=== PATIENT | female | born 1980 | race Caucasian/White ===

== ENCOUNTER 2018-10-12 09:49 | Emergency (ER) | payer OTHER ==
[~2018-10-12] VITALS: Ht 165.1 cm; Wt 71.4 kg
[2018-10-12 10:39] LABS: URINE BILIRUBIN - DIPSTICK NEGATIVE (NEGATIVE); URINE BLOOD DIPSTICK LARGE (NEGATIVE); URINE COLOR YELLOW; URINE GLUCOSE - DIPSTICK NEGATIVE (NEGATIVE); URINE KETONE NEGATIVE (NEGATIVE); URINE NITRITE - DIPSTICK NEGATIVE (Negative); URINE PROTEIN - DIPSTICK NEGATIVE (NEG-TRACE); URINE SPECIFIC GRAVITY 1.015; URINE UROBILINOGEN - DIPSTICK 0.2 E.U./dL (0.2)
[2018-10-12 10:42] LABS: URINE LEUK ESTERASE MODERATE (NEGATIVE)
[2018-10-12 10:44] LABS: HEMATOCRIT 40.8 % (37.0-47.0); HEMOGLOBIN 13.7 g/dl (12.0-16.0); IMMATURE GRANULOCYTES 0.4 % (0.0-5.0); MEAN CORPUSCULAR HGB 31.6 pG CALC (26.0-32.0); MEAN CORPUSCULAR HGB CONC 33.6 g/L CALC (32.0-36.0); NEUT# 12.52 thou/uL (2.00-7.15); RED BLOOD COUNT 4.34 mill/uL (4.20-5.60); RED CELL DISTRI WIDTH 13.5 % (11.5-15.5)
[2018-10-12 10:51] LABS: URINE RBC TNTC RBC/hpf (0-5); URINE SQUAMOUS EPITHELIAL CELL FEW EPI/hpf (0-FEW); URINE WBC 20-50 WBC/hpf (0-5)
[2018-10-12 10:52] LABS: URINE BACTERIA FEW hpf
[2018-10-12 11:33] LABS: ALBUMIN 3.9 g/dL (3.2-5.0); ALKALINE PHOSPHATASE < 20 u/l (38-126); ANION GAP 15 (6-22 (CALC)); BILIRUBIN, TOTAL 0.4 mg/dL (0.0-1.4); BUN 9 mg/dL (7-17); BUN/CREATININE RATIO 13 (12-20 (CALC)); CARBON DIOXIDE 26 mmol/l (22-30); CHLORIDE 105 mmol/l (95-108); CREATININE 0.7 mg/dL (0.5-1.0); GFR > 60 ML/MIN (>=60 (CALC)); GFR FOR AFR.AMER. > 60 ML/MIN (>=60 (CALC)); LIPASE 171 u/l (23-300); POTASSIUM 4.3 mmol/l (3.5-5.1); SGOT/AST 32 u/l (14-36); SODIUM 141 mmol/l (137-146); TOTAL PROTEIN 7.4 g/dL (6.3-8.2)
[2018-10-12] MEDS ORDERED: OMNICEF300 M1 PO (13:42)
[2018-10-12 15:36] VITALS: BP 144/94
== END 2018-10-12 15:48 | disposition home or self-care (01) ==
LOC: ED 09:49
PROVIDERS: Family Medicine
DX: N39.0 Urinary tract infection, site not specified (principal); N70.11 Chronic salpingitis; F17.210 Nicotine dependence, cigarettes, uncomplicated; R10.31 Right lower quadrant pain; R10.32 Left lower quadrant pain
CPT/HCPCS: Q9967

== ENCOUNTER 2019-02-20 12:30 | Emergency (ER) | payer OTHER, MEDICAID ==
[~2019-02-20] VITALS: Ht 165.1 cm; Wt 72.0 kg
[~2019-02-20 12:30] MED LIST: OMNICEF300 M1 PO
[2019-02-20] MEDS ORDERED: LEXAPRO10 MG PO (12:47)
[2019-02-20] MEDS ORDERED: FLEXERIL PO (14:00)
[2019-02-20] MEDS ORDERED: TORADOL PO (14:00)
[2019-02-20 14:30] VITALS: BP 137/83
== END 2019-02-20 14:30 | disposition home or self-care (01) | DRG 552 ==
LOC: ED 12:30
DX: S16.1XXA Strain of muscle, fascia and tendon at neck level, initial encounter (principal); S29.012A Strain of muscle and tendon of back wall of thorax, initial encounter; S40.012A Contusion of left shoulder, initial encounter; S20.219A Contusion of unspecified front wall of thorax, initial encounter; V49.49XA Driver injured in collision with other motor vehicles in traffic accident, initial encounter; Y92.414 Local residential or business street as the place of occurrence of the external cause

== ENCOUNTER 2019-09-03 03:32 | Inpatient (IN) | payer OTHER ==
[~2019-09-03] VITALS: Ht 165.1 cm; Wt 73.0 kg
[~2019-09-03 03:32] MED LIST changes: +FLEXERIL PO; +LEXAPRO10 MG PO; +TORADOL PO
--- NOTE | 2019-09-03 03:32 | NUR ---
BY EMS TO ROOM
[2019-09-03 04:11] LABS: HEMATOCRIT 39.6 % (37.0-47.0); IMMATURE GRANULOCYTES 0.5 % (0.0-5.0); MEAN CELL VOLUME 88.4 fL CALC (80.0-100.0); MEAN CORPUSCULAR HGB 31.3 pG CALC (26.0-32.0); MEAN CORPUSCULAR HGB CONC 35.4 g/L CALC (32.0-36.0); NEUT# 22.11 thou/uL (2.00-7.15); RED BLOOD COUNT 4.48 mill/uL (4.20-5.60); RED CELL DISTRI WIDTH 13.7 % (11.5-15.5)
--- NOTE | 2019-09-03 04:30 | NUR ---
RESTING QUIETLY AWAITING TEST RESULTS.
[2019-09-03 04:32] LABS: ALBUMIN 4.4 g/dL (3.2-5.0); ALKALINE PHOSPHATASE < 20 u/l (38-126); AMYLASE 134 u/l (30-110); BUN 13 mg/dL (7-17); BUN/CREATININE RATIO 14 (12-20 (CALC)); CHLORIDE 104 mmol/l (95-108); CREATININE 0.9 mg/dL (0.5-1.0); GFR > 60 ML/MIN (>=60 (CALC)); GFR FOR AFR.AMER. > 60 ML/MIN (>=60 (CALC)); LIPASE 287 u/l (23-300); POTASSIUM 3.8 mmol/l (3.5-5.1); SGOT/AST 44 u/l (14-36); SODIUM 137 mmol/l (137-146); TOTAL PROTEIN 8.3 g/dL (6.3-8.2)
[2019-09-03 04:33] LABS: ANION GAP 19 (6-22 (CALC)); BILIRUBIN, TOTAL 0.8 mg/dL (0.0-1.4); CARBON DIOXIDE 18 mmol/l (22-30)
--- NOTE | 2019-09-03 05:30 | NUR ---
FEELING BETTER. IV INFUSING WELL.
[2019-09-03 05:50] LABS: URINE BILIRUBIN - DIPSTICK NEGATIVE (NEGATIVE); URINE BLOOD DIPSTICK TRACE-INTACT (NEGATIVE); URINE COLOR YELLOW; URINE GLUCOSE - DIPSTICK 100 mg/dL (NEGATIVE); URINE KETONE 40 mg/dL (NEGATIVE); URINE LEUK ESTERASE NEGATIVE (NEGATIVE); URINE NITRITE - DIPSTICK NEGATIVE (Negative); URINE PROTEIN - DIPSTICK NEGATIVE (NEG-TRACE); URINE SPECIFIC GRAVITY 1.015; URINE UROBILINOGEN - DIPSTICK 0.2 E.U./dL (0.2)
[2019-09-03 06:03] LABS: BARBITURATES NEGATIVE (NEGATIVE); COCAINE NEGATIVE (NEGATIVE); METHADONE NEGATIVE (NEGATIVE); OXCYCODONE NEGATIVE (NEGATIVE); TETRAHYDROCANNABIONOL POSITIVE (NEGATIVE); TRICYLIC ANTIDEPRESSANTS NEGATIVE (NEGATIVE)
[2019-09-03 06:42] LABS: MYOGLOBIN 31 ng/mL (0 - 62)
--- NOTE | 2019-09-03 06:54 | NUR ---
REPORT TO STUART ATKINSON
--- NOTE | 2019-09-03 06:56 | NUR ---
REPORT RECEIVED FROM WILL JEWELL RN.
--- NOTE | 2019-09-03 06:56 | NUR ---
PT RESTING QUIETLY ON STRETCHER, NO PAIN AT THIS TIME
--- NOTE | 2019-09-03 08:17 | NUR ---
NO VOMITING OR DIARRHEA SINCE ARRIVAL, PT HAS BEEN RESTING QUIETLY, VITAL SIGNS STABLE
--- NOTE | 2019-09-03 08:36 | NUR ---
REPORT GIVEN TO FELIPE, WILL TAKE PT TO FLOOR PER W/C WITH FLUIDS INFUSING .
[2019-09-03 08:45] VITALS: BP 120/79
--- NOTE | 2019-09-03 08:45 | NUR ---
PT ARRIVES TO MED/SURG FLOOR VIA WHEELCHAIR FROM ER ACCOMPANIED BY DEMETRIO, IS ALERT AND ORIENTED X 3. LUNGS CLEAR, RA. ABDOMEN SOFT, NO COMPLAINT OF NAUSEA OR VOMITING. IVF INFUSING PROPERLY INTO LAC IV SITE. PT ORIENTED TO ROOM, QUESTIONS ANSWERED. CALL MARQUIS WITHIN REACH.
[2019-09-03 16:00] VITALS: BP 142/82
--- NOTE | 2019-09-03 16:00 | NUR ---
PT MEDICATED FOR FEVER 102.1, TYLENOL. OTHERWISE, ABX INFUSING WELL, PT IN NO ACUTE DISTRESS, NO REPORT OF PAIN.
--- NOTE | 2019-09-03 18:34 | NUR ---
PT HAS HAD FEVER GO UP TO 102.8. SHE WAS MEDICATED WITH MOTRIN 600MG AT THAT TIME. MOST RECENT TEMP IS 102.0. PT STATES THAT SHE DOES FEEL SLIGHTLY BETTER.
[2019-09-03 19:00] VITALS: BP 143/67
--- NOTE | 2019-09-03 19:58 | NUR ---
PATIENT RESTING IN BED AT THIS TIME-AWAKE ALERT AND ORIENTEDX3. IVF NS PATENT AND INFUSING AT 100CC/HR. SITE APPEARS HEALTHY AT THIS TIME. PATIENT WITH C/O ABD PAIN AND NAUSEA. PATIENT MEDICATED WITH MORPHINE 2MG IVP FOR PAIN AND WITH ZOFRAN 4MG IVP FOR NAUSEA. CALL LIGHT IN REACH. WILL CONT TO MONITOR.
--- NOTE | 2019-09-03 23:46 | NUR ---
PATIENT RESTING IN BED-CONT TO C/O ABD PAIN-6/10 ON PAIN SCALE AND NAUSEA. MEDICATED WITH MORPHINE 2MG IVP FOR PAIN AND WITH ZOFRAN 4MG IVP FOR NAUSEA. ZOSYN HUNG ORDERED. IV SITE TO LEFT AC INTACT AND REMAINS HEALTHY. NO STOOLS SO FAR TONIGHT. PATIENT HAS BEEN INSTRUCTED ON [place] FOR STOOL SPEC WHEN ABLE TO PROVIDE. CALL LIGHT IN REACH. WILL CONT TO MONITOR.
--- NOTE | 2019-09-04 01:02 | NUR ---
RESTING IN BED-MOQN658.7. MEDICATED WITH TYLENOL 650MG PO FOR TEMP. BLANKETS REMOVED FROM BED. CALL LIGHT IN REACH, WILL CONT TO MONITOR.
[2019-09-04 03:50] VITALS: BP 142/77
--- NOTE | 2019-09-04 04:00 | NUR ---
PATIENT RESTING IN BED. TEMP 99.1 AT THIS TIME.APPEARS SLEEPING WITH EYES CLOSED. IVF PATENT AND INFUSING VIA LEFT AC AT 100CC/HR. CALL LIGHT IN REACH. WILL CONT TO MONITOR.
[2019-09-04 05:00] LABS: HEMATOCRIT 35.3 % (37.0-47.0); IMMATURE GRANULOCYTES 0.7 % (0.0-5.0); MEAN CELL VOLUME 92.7 fL CALC (80.0-100.0); MEAN CORPUSCULAR HGB 30.7 pG CALC (26.0-32.0); MEAN CORPUSCULAR HGB CONC 33.1 g/L CALC (32.0-36.0); NEUT# 9.03 thou/uL (2.00-7.15); RED BLOOD COUNT 3.81 mill/uL (4.20-5.60); RED CELL DISTRI WIDTH 14.1 % (11.5-15.5)
[2019-09-04 05:07] LABS: HEMOGLOBIN 11.7 g/dl (12.0-16.0)
[2019-09-04 05:31] LABS: ANION GAP 13 (6-22 (CALC)); BUN 6 mg/dL (7-17); BUN/CREATININE RATIO 8 (12-20 (CALC)); CARBON DIOXIDE 19 mmol/l (22-30); CHLORIDE 109 mmol/l (95-108); CREATININE 0.8 mg/dL (0.5-1.0); GFR > 60 ML/MIN (>=60 (CALC)); GFR FOR AFR.AMER. > 60 ML/MIN (>=60 (CALC)); MAGNESIUM 1.6 mg/dL (1.6-2.3); POTASSIUM 3.4 mmol/l (3.5-5.1); SODIUM 137 mmol/l (137-146)
[2019-09-04 07:25] VITALS: BP 147/89
--- NOTE | 2019-09-04 07:25 | NUR ---
AWAKE ON ROUNDS. VSS. RESP NON-LABORED. ABD SOFT WITH ACTIVE BOWEL SOUNDS. PATIENT HAD BM IN BR, STOOL SPEC OBTAINED AND SENT TO LAB. PATIENT C/O ABD PAIN AND A HEADACHE PLAN OF CARE AND MEDICATION SCHEDULE, PATIENT VERBALIZES UNDERSTANDING OF TEACHING. IV IN LAC, SITE BENIGN, NS INFUSING AT 100 ML/HR. CALL MARQUIS IN REACH.
--- NOTE | 2019-09-04 09:04 | NUR ---
PATIENT SXHEDULED FOR FLU AND PNEUMOVAX TODAY. PATIENT STATES SHE FEELS LIKE TEMP IS GOING UP, "CHILLS". FLUVAX AND PNEUMOVAX HELD AT THIS TIME.
--- NOTE | 2019-09-04 12:05 | NUR ---
TAKING CLEAR LIQUIDS FOR LUNCH. PATIENT HAS BEEN UP IN ROOM TO SHOWER, STANCE AND GAIT STABLE.
[2019-09-04 15:16] VITALS: BP 149/86
--- NOTE | 2019-09-04 15:30 | NUR ---
DISCUSSED CT OF ABD AND PELVIS AND TAKING PO IV CONTRAST. PATIENT VERBALIZES UNDERSTANDING OF TEACHING.
--- NOTE | 2019-09-04 17:00 | NUR ---
TO XRAY FOR CT SCAN OF ABD AND PELVIS.
--- NOTE | 2019-09-04 17:30 | NUR ---
RETURNED FROM CT SCAN VIA WC. FAMILY IN TOVISIT. NO COMPLAINTS VOICED BY PATIENT.
--- NOTE | 2019-09-04 20:02 | NUR ---
PT. SITTING UP IN BED WATCHING TV, NO RESP. DISTRESS NOTED. ASSESSMENT COMPLETED. PT. C/O ABDOMINAL PAIN 5/10 AND NAUSEA; TEMPERATURE ELEVATED AT 102.1 AND MEDICATED WITH ORDERED MORPHINE AND ZOFRAN ALONG WITH MOTRIN, WILL REASSESS. UPDATED ON POC. ENCOURAGED TO CALL FOR ANY NEEDS. FRESH WATER PROVIDED. CALL LIGHT IS IN REACH.
[2019-09-04 21:00] VITALS: BP 141/81
--- NOTE | 2019-09-04 22:07 | NUR ---
TEMPERATURE DOWN TO 101.5 POST MOTRIN AND MEDICATED WITH ORDERED PRN TYLENOL, WILL REASSESS. DENIES FURTHER NEEDS. CALL LIGHT IS IN REACH.
--- NOTE | 2019-09-05 00:39 | NUR ---
PT. RESTING IN BED WITH EYES CLOSED ON LEFT SIDE WITH NO DISTRESS NOTED. AWAKENED FOR SCHED ZOSYN AND HUNG AT THIS TIME. DENIES NEEDS AND VOICES NO CONCERNS. COMMODE EMPTIED OF 1000MLS OF YELLOW CLEAR URINE. CALL LIGHT IS IN REACH.
--- NOTE | 2019-09-05 02:04 | NUR ---
PT. C/O CASTANEDA NOT TIME FOR MOTRIN OR TYLENOL AT THIS TIME. PT. DECLINES WANTING MOPRHINE. PROVIDED WITH COFFEE WITHOUT CREAMER. PT. DENIES FURTHER NEEDS. ALSO DECLINES HOT/COLD PACK. ENCOURAGED TO CALL FOR ANY NEEDS.
[2019-09-05 03:25] VITALS: BP 143/82
--- NOTE | 2019-09-05 03:36 | NUR ---
PT. MEDICATED WITH ORDEREDPRN MOTRIN FOR CASTANEDA AND TEMP NOW 99, WILL REASSESS AND CONTINUE TO MONITOR. DENIES FURTHER NEEDS. CALL LIGHT IS IN REACH.
[2019-09-05 05:30] LABS: HEMATOCRIT 34.7 % (37.0-47.0); HEMOGLOBIN 11.8 g/dl (12.0-16.0); IMMATURE GRANULOCYTES 0.4 % (0.0-5.0); MEAN CELL VOLUME 91.6 fL CALC (80.0-100.0); MEAN CORPUSCULAR HGB 31.1 pG CALC (26.0-32.0); NEUT# 7.96 thou/uL (2.00-7.15); RED BLOOD COUNT 3.79 mill/uL (4.20-5.60); RED CELL DISTRI WIDTH 14.2 % (11.5-15.5)
--- NOTE | 2019-09-05 05:38 | NUR ---
PT. RESTING IN BED ON RIGHT SIDE WITH EYES CLOSED AND AWAKENED FOR SCHED ANTIBIOTIC. DENIES NEEDS FOR PAIN MEDS AT THIS TIME. TEMP 97.4. VOICES NO CONCERNS. CALL LIGHT IS IN REACH.
[2019-09-05 06:10] LABS: ANION GAP 12 (6-22 (CALC)); BUN 4 mg/dL (7-17); BUN/CREATININE RATIO 6 (12-20 (CALC)); CARBON DIOXIDE 22 mmol/l (22-30); CHLORIDE 107 mmol/l (95-108); CREATININE 0.7 mg/dL (0.5-1.0); GFR > 60 ML/MIN (>=60 (CALC)); GFR FOR AFR.AMER. > 60 ML/MIN (>=60 (CALC)); MAGNESIUM 1.7 mg/dL (1.6-2.3); POTASSIUM 3.4 mmol/l (3.5-5.1); SODIUM 138 mmol/l (137-146)
[2019-09-05 08:00] VITALS: BP 141/100
--- NOTE | 2019-09-05 08:00 | NUR ---
AWAKE ON ROUNDS. AFEBRILE THIS MORNING. PATIENT DENIES ANY ABD PAIN. C/O HEADACHE. LAC IV SITE HEALTHY, NS INFUSING AT 100 ML/HR. DISCUSSED PLAN OF CARE. SHIFT ASSESSMENT COMPLETED. CALL MARQUIS IN REACH.
[2019-09-05 09:27] LABS: ALKALINE PHOSPHATASE < 20 u/l (38-126)
[2019-09-05 09:41] LABS: SGOT/AST 129 u/l (14-36)
--- NOTE | 2019-09-05 11:50 | NUR ---
RESTING IN BED. PATIENT STATES FEELING MUCH BETTER TODAY.
[2019-09-05 15:00] VITALS: BP 147/93
--- NOTE | 2019-09-05 16:00 | NUR ---
FAMILY IN TO VISIT.
--- NOTE | 2019-09-05 18:53 | NUR ---
REPORT RECEIVED FROM STUART LEMA. PT RESTING IN BED ALERT AND ORIENTED. NO S/S OF DISTRESS AT THIS TIME. SAFETY PRECAUTIONS IN PLACE. WILL CONTINUE TO MONITOR.
[2019-09-05 18:55] VITALS: BP 150/70
--- NOTE | 2019-09-05 20:10 | NUR ---
PT RESTING IN BED, ALERT AND ORIENTED. RESPIRATIONS EVEN AND UNLABORED ON RA. LUNGS SOUND CLEAR. PEDAL PULSES STONG. PT DENIES ANY PAIN OR DISCOMFORT AT THIS TIME. CALL MARQUIS WITHIN REACH. WILL CONTINUE TO MONITOR.
--- NOTE | 2019-09-06 01:40 | NUR ---
PT RESTING IN BED NO S/S OF DISTRESS AT THIS TIME. SAFEYT PRECAUTIONS IN PLACE. WILL CONTINUE TO MONITOR.
[2019-09-06 03:50] VITALS: BP 133/80
--- NOTE | 2019-09-06 04:52 | NUR ---
PT RESTING IN BED. RESPIRATIONS EVEN AND UNLABORED ON RA. SAFETY PRECAUTIONS IN PLACE. WILL CONTINUE TO MONITOR.
[2019-09-06 05:42] LABS: HEMATOCRIT 34.4 % (37.0-47.0); HEMOGLOBIN 11.6 g/dl (12.0-16.0); IMMATURE GRANULOCYTES 0.6 % (0.0-5.0); MEAN CELL VOLUME 92.2 fL CALC (80.0-100.0); MEAN CORPUSCULAR HGB 31.1 pG CALC (26.0-32.0); MEAN CORPUSCULAR HGB CONC 33.7 g/L CALC (32.0-36.0); NEUT# 2.91 thou/uL (2.00-7.15); RED BLOOD COUNT 3.73 mill/uL (4.20-5.60)
[2019-09-06 06:08] LABS: ANION GAP 11 (6-22 (CALC)); BUN 7 mg/dL (7-17); BUN/CREATININE RATIO 11 (12-20 (CALC)); CARBON DIOXIDE 21 mmol/l (22-30); CHLORIDE 110 mmol/l (95-108); CREATININE 0.6 mg/dL (0.5-1.0); GFR > 60 ML/MIN (>=60 (CALC)); GFR FOR AFR.AMER. > 60 ML/MIN (>=60 (CALC)); POTASSIUM 3.8 mmol/l (3.5-5.1); SODIUM 139 mmol/l (137-146)
[2019-09-06 07:35] VITALS: BP 156/104
--- NOTE | 2019-09-06 07:35 | NUR ---
AWAKE ON ROUNDS. VSS. RESP NON-LABORED. ABD SOFT WITH BOWEL SOUNDS, DENIES ANY TENDERNESS OR PAIN. VOIDS CLEAR YELLOW URINE. IV SITE IN LAC, SITE BENIGN, NS INFUSING AT 100 ML/HR. SHIFT ASSESSMENT COMPLETED. DENIES NEEDS AT THIS TIME. CALL MARQUIS IN REACH.
[2019-09-06 11:00] VITALS: BP 151/95
--- NOTE | 2019-09-06 11:30 | NUR ---
IV SITE LEAKING IN LAC, DC'D SITE. WILL HOLD OFF ON RESTART PATIENT IS A PROBABLE DC FOR TODAY. NO C/O VOICED BY PATIENT. AFEBRILE SO FAR TODAY.
[2019-09-06 15:20] VITALS: BP 150/84
[2019-09-06] MEDS ORDERED: CIPROFLOXACN500 MG PO (15:55)
[2019-09-06] MEDS ORDERED: FLORASTOR250 M1 PO (15:55)
[2019-09-06] MEDS ORDERED: METRONIDAZOL500 MG PO (15:55)
--- NOTE | 2019-09-06 17:04 | NUR ---
Discharge instructions given. Patient verbalizes understanding of same. Discharged in stable condition via Wheelchair to Home with spouse. All belongings sent with pt.
== END 2019-09-06 17:04 | disposition home or self-care (01) | DRG 386 ==
LOC: ED 03:32 → ED-I 06:50 → ED 07:06 → MS2 07:07
PROVIDERS: Emergency Medicine; Nurse Practitioner Family; ADMIT Internal Medicine; ATTEND Internal Medicine
DX: K50.10 Crohn's disease of large intestine without complications (principal); E87.2 Acidosis; F41.9 Anxiety disorder, unspecified; F32.9 Major depressive disorder, single episode, unspecified; F17.200 Nicotine dependence, unspecified, uncomplicated; R74.8 Abnormal levels of other serum enzymes; E87.6 Hypokalemia; Z83.79 Family history of other diseases of the digestive system
CPT/HCPCS: J1650; Q9967; S0164

== ENCOUNTER 2020-07-02 10:25 | Emergency (ER) | payer OTHER ==
[~2020-07-02] VITALS: Ht 154.9 cm; Wt 68.0 kg
[~2020-07-02 10:25] MED LIST changes: +CIPROFLOXACN500 MG PO; +FLORASTOR250 M1 PO; +METRONIDAZOL500 MG PO
[2020-07-02 11:04] LABS: HEMATOCRIT 41.4 % (37.0-47.0); HEMOGLOBIN 13.4 g/dl (12.0-16.0); IMMATURE GRANULOCYTES 0.2 % (0.0-5.0); MEAN CELL VOLUME 91.4 fL CALC (80.0-100.0); MEAN CORPUSCULAR HGB 29.6 pG CALC (26.0-32.0); MEAN CORPUSCULAR HGB CONC 32.4 g/dL CAL (32.0-36.0); NEUT# 6.24 thou/uL (2.00-7.15); RED BLOOD COUNT 4.53 mill/uL (4.20-5.60); RED CELL DISTRI WIDTH 13.6 % (11.5-15.5)
[2020-07-02] MEDS ORDERED: ATIVAN1 MG PO (11:29)
[2020-07-02] MEDS ORDERED: BUPROPION150 M3 PO (11:30)
[2020-07-02 11:51] LABS: ALBUMIN 4.4 g/dL (3.2-5.0); ALKALINE PHOSPHATASE < 20 u/l (38-126); AMYLASE 96 u/l (30-110); ANION GAP 12 (6-22 (CALC)); BILIRUBIN, TOTAL 0.4 mg/dL (0.0-1.4); BUN 11 mg/dL (7-17); BUN/CREATININE RATIO 14 (12-20 (CALC)); CARBON DIOXIDE 21 mmol/l (22-30); CHLORIDE 108 mmol/l (95-108); CREATININE 0.8 mg/dL (0.5-1.0); GFR > 60 ML/MIN (>=60 (CALC)); GFR FOR AFR.AMER. > 60 ML/MIN (>=60 (CALC)); LIPASE 133 u/l (23-300); POTASSIUM 3.9 mmol/l (3.5-5.1); SGOT/AST 32 u/l (14-36); SODIUM 138 mmol/l (137-146); TOTAL PROTEIN 7.9 g/dL (6.3-8.2)
[2020-07-02 12:03] LABS: MYOGLOBIN 62 ng/mL (0 - 62)
[2020-07-02 12:26] LABS: URINE BILIRUBIN - DIPSTICK NEGATIVE (NEGATIVE); URINE BLOOD DIPSTICK SMALL (NEGATIVE); URINE COLOR YELLOW; URINE GLUCOSE - DIPSTICK NEGATIVE (NEGATIVE); URINE KETONE TRACE mg/dL (NEGATIVE); URINE LEUK ESTERASE NEGATIVE (NEGATIVE); URINE NITRITE - DIPSTICK NEGATIVE (Negative); URINE PROTEIN - DIPSTICK NEGATIVE (NEG-TRACE); URINE SPECIFIC GRAVITY >=1.030; URINE UROBILINOGEN - DIPSTICK 0.2 E.U./dL (0.2)
[2020-07-02 12:28] LABS: URINE EPITHELIAL CELLS FEW EPI/hpf (0-FEW); URINE MUCUS FEW hpf (NONE-FEW)
[2020-07-02] MEDS ORDERED: ONDANSETRON4 MG PO (14:37)
[2020-07-02 14:46] VITALS: BP 139/83
== END 2020-07-02 14:56 | disposition home or self-care (01) ==
LOC: ED 10:25
PROVIDERS: Emergency Medicine
DX: N83.201 Unspecified ovarian cyst, right side (principal); D18.03 Hemangioma of intra-abdominal structures; F41.9 Anxiety disorder, unspecified; F32.9 Major depressive disorder, single episode, unspecified; F17.210 Nicotine dependence, cigarettes, uncomplicated; Z79.899 Other long term (current) drug therapy
CPT/HCPCS: Q9967

== ENCOUNTER 2021-01-16 13:40 | Observation (INO) | payer OTHER ==
[~2021-01-16] VITALS: Ht 154.9 cm; Wt 83.0 kg
[~2021-01-16 13:40] MED LIST changes: +ATIVAN1 MG PO; +BUPROPION150 M3 PO; +ONDANSETRON4 MG PO
--- NOTE | 2021-01-16 13:45 | NUR ---
ARRIVED VIA EMS TO ROOM 15 FOR TRIAGE
[2021-01-16] MEDS ORDERED: WELLBUTRIN150 M1 PO (14:14)
[2021-01-16] MEDS ORDERED: XANAX0.5 MG PO (14:14)
[2021-01-16] MEDS ORDERED: BIPOLAR MED (14:15)
[2021-01-16 14:19] LABS: HEMATOCRIT 42.3 % (37.0-47.0); HEMOGLOBIN 14.4 g/dl (12.0-16.0); IMMATURE GRANULOCYTES 0.4 % (0.0-5.0); MEAN CELL VOLUME 88.9 fL CALC (80.0-100.0); MEAN CORPUSCULAR HGB 30.3 pG CALC (26.0-32.0); NEUT# 17.05 thou/uL (2.00-7.15); RED BLOOD COUNT 4.76 mill/uL (4.20-5.60); RED CELL DISTRI WIDTH 13.8 % (11.5-15.5)
[2021-01-16 14:29] LABS: ALBUMIN 4.8 g/dL (3.2-5.0); ALKALINE PHOSPHATASE < 20 u/l (38-126); AMYLASE 138 u/l (30-110); ANION GAP 16 (6-22 (CALC)); BUN 22 mg/dL (7-17); BUN/CREATININE RATIO 27 (12-20 (CALC)); CARBON DIOXIDE 22 mmol/l (22-30); CHLORIDE 104 mmol/l (95-108); CREATININE 0.8 mg/dL (0.5-1.0); GFR > 60 ML/MIN (>=60 (CALC)); GFR FOR AFR.AMER. > 60 ML/MIN (>=60 (CALC)); LIPASE 594 u/l (23-300); POTASSIUM 4.1 mmol/l (3.5-5.1); SGOT/AST 40 u/l (14-36); SODIUM 138 mmol/l (137-146); TOTAL PROTEIN 8.9 g/dL (6.3-8.2)
[2021-01-16 14:30] LABS: BILIRUBIN, TOTAL 0.7 mg/dL (0.0-1.4)
--- NOTE | 2021-01-16 15:11 | NUR ---
PATIENT RESTNG QUIETLY,BED IN LOW POSITION. MOUTH CARE GIVEN. CALL MARQUIS IN REACH
--- NOTE | 2021-01-16 16:15 | NUR ---
PATIENT RESTING,STATES SHE FELS BETTER.
--- NOTE | 2021-01-16 16:53 | NUR ---
PHYSICIAN TO BEDSIDE TO REREVALUATE.
--- NOTE | 2021-01-16 17:21 | NUR ---
Patient aware of impending admission. Feels better.
--- NOTE | 2021-01-16 18:49 | NUR ---
PATIENT FEELING BETTER. LIQUID TRAY GIVEN AND TOLERATED WELL.
--- NOTE | 2021-01-16 19:11 | NUR ---
CARE ASSUMED, PT AWWARE OF PLANNED ADMISSION NO S/S OF DISTRESS, CALL MARQUIS WITHIN REACH.
--- NOTE | 2021-01-16 19:20 | NUR ---
POF LUIDS PROVIDED PT TOLERATED CLEAR LIQUID MEAL PER REPORT, AWAITING ADDMISSION PPT AWARE.
--- NOTE | 2021-01-16 19:47 | NUR ---
REPORT CALLED TO MED SURG NURSE BENJAMIN FRAUSTO.
[2021-01-16 19:50] VITALS: BP 146/88
--- NOTE | 2021-01-16 19:53 | NUR ---
PT TRASNPORTED TO MED SURG VIA [employer], ALL BELONGINGS WITH BELONGINGS LIST COMPLETED SENT [facility] PT.
--- NOTE | 2021-01-16 19:55 | NUR ---
PT ARRIVES IN THE ROOM VIA WHEELCHAIR. AMBULATORY. ALLERGIES NOTED. PT HAS SORENESS AT HER ABD DUE TO THROWING UP ALL DAY. PAIN MEDICATION WAS GIVEN IN THE ER. RATE OF 5/10 AT THIS MOMENT. PT IS A SMOKER. LUNGS SOUNDS ARE CLEAR. HEART RATE NORMAL. SHE IS ON A CLEAR LIQUID DIET AT THIS MOMENT. PT IN BED RESTING AT THIS MOMENT. CALL LIGHT WITHIN RANGE. WILL CONTINUE TO MONITOR
--- NOTE | 2021-01-16 21:10 | NUR ---
CRITICAL LAB PROCAL 0.350. BY [employer]. CALLED AND NOTIFIED. PT WILL BE GETTING VAHE DOSE OF ABT AT MIDNIGHT.
--- NOTE | 2021-01-17 | NUR ---
PT IN BED RESTING. ABT RUNNING AT THIS TIME. NO COMPLAINT OF PAIN. CALL LIGHT WITHIN REACH WILL CONTINUE TO MONITOR
[2021-01-17 04:00] VITALS: BP 169/98
--- NOTE | 2021-01-17 04:00 | NUR ---
PT THROWING UP AND COMPLAINING OF ABD PAIN. PRN PAIN MED GIVEN. CALLED FOR ANSHUL HE SAYS YES Q8. PTHAS RECEIVED BOTH MEDICATION WILL CONTINUE TO MONITOR
--- NOTE | 2021-01-17 05:18 | NUR ---
PT SLEEPING NAUSEA HAS SUBSITED. ABD PAIN REMAINS BUT NOT AT THE SAME LEVEL PT TRYING TO REST. WILL CONTINUE TO MONITOR
[2021-01-17 05:37] LABS: IMMATURE GRANULOCYTES 0.5 % (0.0-5.0); MEAN CELL VOLUME 90.7 fL CALC (80.0-100.0); MEAN CORPUSCULAR HGB 30.2 pG CALC (26.0-32.0); MEAN CORPUSCULAR HGB CONC 33.2 g/dL CAL (32.0-36.0); NEUT# 14.49 thou/uL (2.00-7.15); RED BLOOD COUNT 3.98 mill/uL (4.20-5.60); RED CELL DISTRI WIDTH 14.1 % (11.5-15.5)
[2021-01-17 05:40] LABS: HEMATOCRIT 36.1 % (37.0-47.0)
[2021-01-17 06:02] LABS: ALKALINE PHOSPHATASE < 20 u/l (38-126); BUN 8 mg/dL (7-17); BUN/CREATININE RATIO 12 (12-20 (CALC)); CARBON DIOXIDE 20 mmol/l (22-30); CHLORIDE 107 mmol/l (95-108); CREATININE 0.7 mg/dL (0.5-1.0); GFR > 60 ML/MIN (>=60 (CALC)); GFR FOR AFR.AMER. > 60 ML/MIN (>=60 (CALC)); SGOT/AST 38 u/l (14-36); SODIUM 136 mmol/l (137-146)
[2021-01-17 06:03] LABS: ALBUMIN 3.5 g/dL (3.2-5.0); ANION GAP 12 (6-22 (CALC)); BILIRUBIN, TOTAL 0.4 mg/dL (0.0-1.4); POTASSIUM 3.2 mmol/l (3.5-5.1); TOTAL PROTEIN 6.6 g/dL (6.3-8.2)
[2021-01-17 07:10] VITALS: BP 140/89
--- NOTE | 2021-01-17 07:45 | NUR ---
PATIENT RESTING IN BED AT THIS TIME. DEPARTMENT ASSISTANT DONE (SEE INTERVENTIONS). PATIENT STATED SHE DOES FEEL A LITTLE BETTER THAN WHEN SHE WAS ADMITTED. PATIENT BOWEL SOUNDS PRESENT IN ALL FOUR QUADRANTS. PATIENT DENEIS ANY PAIN AT THIS TIME. SIDERAILS ARE UP X 2 CALL LIGHT WITHIN REACH.
--- NOTE | 2021-01-17 08:30 | NUR ---
WALKED INTO ROOM TO ADMINISTER 8AM AND 9AM MEDS. PATIENT HAD BASIN ON BED WITH APPOXIMATELY 100CC OF CLEAR EMESIS. STATES SHE IS NOT FEELING GOOD AND JUST VOMITTED THE APPLE JUICE AND WATER SHE INGESTED. PATIENT WANTS TO HOLD OFF ON MEDS AT THIS TIME. JAVI DAVIDSON AND FAUSTINO JEROME NOTIFIED.
[2021-01-17 10:50] LABS: URINE BILIRUBIN - DIPSTICK NEGATIVE (NEGATIVE); URINE BLOOD DIPSTICK SMALL (NEGATIVE); URINE COLOR YELLOW; URINE GLUCOSE - DIPSTICK 100 mg/dL (NEGATIVE); URINE KETONE 15 mg/dL (NEGATIVE); URINE LEUK ESTERASE NEGATIVE (NEGATIVE); URINE PH 7.5 (4.5-8.0); URINE PROTEIN - DIPSTICK NEGATIVE (NEG-TRACE); URINE UROBILINOGEN - DIPSTICK 0.2 E.U./dL (0.2)
[2021-01-17 10:56] LABS: URINE NITRITE - DIPSTICK NEGATIVE (Negative)
--- NOTE | 2021-01-17 12:15 | NUR ---
PATIENT RESTING IN BED AT THIS TIME. PATIENT DENEIS ANY NAUSEA OR VOMITING AT THIS TIME. SIDERAILS ARE UP X 2 CALL LIGHT WITHIN REACH PATIENT DENEIS ANY NEEDS.
[2021-01-17 15:13] VITALS: BP 145/90
--- NOTE | 2021-01-17 16:20 | NUR ---
PATIENT RESTING IN BED DENEIS ANY NEEDS STATED SHE HAS NO PAIN AT THIS TIME. CALL LIGHT WITHIN REACH SIDERAILS ARE UP X2.
[2021-01-17 19:00] VITALS: BP 143/79
--- NOTE | 2021-01-17 19:30 | NUR ---
PATIENT RESTING IN BED-FACE DOWN WITH EYES CLOSED. RESPS ARE EVEN AND UNLABORED. APPEARS SLEEPING AT THIS TIME. IVF NS PATENT AND INFUSING VIA RAC AT 150CC/HR. SITE REMAINS HEALTHY AT THIS TIME. CALL LIGHT IN REACH. WILL CONT TO MONITOR.
[2021-01-17 20:34] VITALS: BP 167/72
--- NOTE | 2021-01-18 | NUR ---
PATIENT POSITIONED ON RIGHT SIDE WITH EYES CLOSED. RESPS ARE EVEN AND UNLABORED. APPEARS SLEEPING. UNASYN HUNG ORDERED. IVF NS PATENT AND INFUSING VIA RAC AT 150CC/HR. CALL LIGHT IN REACH. WILL CONT TO MONITOR.
[2021-01-18 04:30] VITALS: BP 145/87
--- NOTE | 2021-01-18 05:06 | NUR ---
PATIENT RESTING IN BED POSITIONED ON LEFT SIDE. EYES ARE CLOSED. RESPS ARE EVEN AND UNLABORED. IVF NS PATENT AND INFUSING VIA RAC SITE AT 100CC/HR. NO C/O NAUSEA TONIGHT. NO C/O PAIN SO FAR TONIGHT. CALL LIGHT IN REACH. WILL CONT TO MONITOR.
[2021-01-18 05:34] LABS: HEMATOCRIT 38.3 % (37.0-47.0); HEMOGLOBIN 12.6 g/dl (12.0-16.0); MEAN CELL VOLUME 92.5 fL CALC (80.0-100.0); MEAN CORPUSCULAR HGB 30.4 pG CALC (26.0-32.0); MEAN CORPUSCULAR HGB CONC 32.9 g/dL CAL (32.0-36.0); RED BLOOD COUNT 4.14 mill/uL (4.20-5.60); RED CELL DISTRI WIDTH 14.2 % (11.5-15.5)
[2021-01-18 05:54] LABS: ANION GAP 12 (6-22 (CALC)); BUN 5 mg/dL (7-17); BUN/CREATININE RATIO 7 (12-20 (CALC)); CARBON DIOXIDE 22 mmol/l (22-30); CHLORIDE 108 mmol/l (95-108); CREATININE 0.7 mg/dL (0.5-1.0); GFR > 60 ML/MIN (>=60 (CALC)); GFR FOR AFR.AMER. > 60 ML/MIN (>=60 (CALC)); MAGNESIUM 1.9 mg/dL (1.6-2.3); POTASSIUM 3.7 mmol/l (3.5-5.1); SODIUM 139 mmol/l (137-146)
[2021-01-18 07:10] VITALS: BP 144/95
--- NOTE | 2021-01-18 07:25 | NUR ---
PATIENT RESTING IN BED AT THIS TIME. PATIENT DENEIS ANY PAIN OR NAUSEA AND OR VOMITITNG AT THIS TIME. PATIENT STATES "I FEEL MUCH BETTER THAN YESTERDAY". HEALTH CENTER ASSISTANT DONE SEE INTERVENTIONS AT THIS TIME. CALL LIGHT AND PERSONAL ITEMS WITHIN REACH SIDERAILS ARE UP X 2.
[2021-01-18] MEDS ORDERED: ZOFRAN4 MG/TAB PO (10:37)
[2021-01-18] MEDS ORDERED: PROTONIX40 MG PO (10:38)
[2021-01-18] MEDS ORDERED: AMOX/K CLAV875 M1 PO (10:39)
--- NOTE | 2021-01-18 11:44 | NUR ---
PATIENT D/C'D AT THIS TIME. PATIENT VERBALZIES UNDERSTANDING OF DC INSTRUCTIONS.
--- NOTE | 2021-01-18 11:45 | NUR ---
Discharge instructions given. Patient verbalizes understanding of same. Discharged in stable condition via Wheelchair to Home with *Other. All belongings sent with pt.
== END 2021-01-18 11:45 | disposition home or self-care (01) ==
LOC: ED 13:40 → ED-I 15:50 → ED 17:03 → MS2 17:04
PROVIDERS: Emergency Medicine; Nurse Practitioner; ADMIT Internal Medicine; ATTEND Internal Medicine
DX: K52.9 Noninfective gastroenteritis and colitis, unspecified (principal); E87.6 Hypokalemia; F41.9 Anxiety disorder, unspecified; F31.9 Bipolar disorder, unspecified; F17.210 Nicotine dependence, cigarettes, uncomplicated; Z90.49 Acquired absence of other specified parts of digestive tract; Z20.822 Contact with and (suspected) exposure to COVID-19
CPT/HCPCS: G0378; J1650; Q9967; S0164

== ENCOUNTER 2024-11-17 21:59 | Emergency (ER) | payer MEDICARE ==
[~2024-11-17] VITALS: Ht 154.9 cm; Wt 82.0 kg
[~2024-11-17 21:59] MED LIST changes: +AMOX/K CLAV875 M1 PO; +BIPOLAR MED; +PROTONIX40 MG PO; +WELLBUTRIN150 M1 PO; +XANAX0.5 MG PO; +ZOFRAN4 MG/TAB PO
[2024-11-17] MEDS ORDERED: LAMICTAL200 M1 PO (22:16)
[2024-11-17] MEDS ORDERED: SODIUM CHLORIDE 0.9% 1,000 ML IV STA (22:29)
[2024-11-17] MEDS ORDERED: PROMETHAZINE HCL 25 MG/ML AMP IV ONE (22:30)
[2024-11-17] MEDS ORDERED: LOPERAMIDE HCL 2 MG CAP PO ONE (22:30)
[2024-11-17] MEDS ORDERED: SODIUM CHLORIDE 0.9% 1,000 ML IV ONE (22:30)
[2024-11-17 22:51] LABS: BASO% 0.1 % (0-3); EOS% 0.2 % (0-8); HEMOGLOBIN 14.2 g/dl (12.0-16.0); IMMATURE GRANULOCYTES 0.2 % (0.0-5.0); LYMPH% 7.4 % (15-41); MEAN CELL VOLUME 90.9 fL CALC (80.0-100.0); MONO% 2.7 % (2-13); NEUT# 15.63 thou/uL (2.00-7.15); NEUT% 89.4 % (42-76); RED BLOOD COUNT 4.73 mill/uL (4.20-5.60); RED CELL DISTRI WIDTH 13.3 % (11.5-15.5)
[2024-11-17 22:57] VITALS: BP 174/97
[2024-11-17 23:01] VITALS: BP 182/99
[2024-11-17 23:05] LABS: BUN 12 mg/dL (7-17); BUN/CREATININE RATIO 16 (12-20 (CALC)); CHLORIDE 103 mmol/l (95-108); CREATININE 0.8 mg/dL (0.5-1.0); ESTIMATED GFR 93 ML/MIN (>=90 (CALC)); SGOT/AST 54 u/l (14-36); SODIUM 138 mmol/l (137-146); TOTAL PROTEIN 8.5 g/dL (6.3-8.2)
[2024-11-17 23:12] LABS: ALKALINE PHOSPHATASE < 20 u/l (38-126); ANION GAP 19 (6-22 (CALC)); BILIRUBIN, TOTAL 0.6 mg/dL (0.02-1.3); CARBON DIOXIDE 20 mmol/l (22-30); POTASSIUM 3.8 mmol/l (3.5-5.1)
[2024-11-17 23:31] VITALS: BP 189/107
[2024-11-18 00:01] VITALS: BP 143/85
[2024-11-18] MEDS ORDERED: ANTI-DIARRHE2 M1 PO (00:14)
[2024-11-18] MEDS ORDERED: PROMETHAZINE HY25 M1 PO (00:14)
[2024-11-18 00:30] VITALS: BP 136/93
[2024-11-18 01:00] VITALS: BP 130/82
[2024-11-18 01:10] VITALS: BP 130/82
== END 2024-11-18 01:10 | disposition home or self-care (01) ==
LOC: ED 21:59
PROVIDERS: Family Medicine
DX: K52.9 Noninfective gastroenteritis and colitis, unspecified (principal); F17.210 Nicotine dependence, cigarettes, uncomplicated
CPT/HCPCS: J2550

== ENCOUNTER 2024-11-19 12:31 | Emergency (ER) | payer MEDICARE ==
[~2024-11-19] VITALS: Ht 154.9 cm; Wt 75.0 kg
[2024-11-19] VITALS (10 sets, daily range): BP systolic 176–201; BP diastolic 88–120
[~2024-11-19 12:31] MED LIST changes: +ANTI-DIARRHE2 M1 PO; +LAMICTAL200 M1 PO; +PROMETHAZINE HY25 M1 PO
[2024-11-19] MEDS ORDERED: SODIUM CHLORIDE 0.9% 1,000 ML IV ONE (13:00)
[2024-11-19] MEDS ORDERED: KETOROLAC TROMETHAMINE 30 MG/ML SDV IV ONE (13:00)
[2024-11-19] MEDS ORDERED: ONDANSETRON HCl 4 MG/2 ML SDV IV ONE (13:00)
[2024-11-19 13:35] LABS: BASO% 0.2 % (0-3); EOS% 0.1 % (0-8); HEMATOCRIT 41.2 % (37.0-47.0); HEMOGLOBIN 14.1 g/dl (12.0-16.0); IMMATURE GRANULOCYTES 0.3 % (0.0-5.0); LYMPH% 12.8 % (15-41); MEAN CELL VOLUME 89.8 fL CALC (80.0-100.0); MEAN CORPUSCULAR HGB 30.7 pG CALC (26.0-32.0); MEAN CORPUSCULAR HGB CONC 34.2 g/dL CAL (32.0-36.0); MONO% 5.2 % (2-13); NEUT% 81.4 % (42-76); RED BLOOD COUNT 4.59 mill/uL (4.20-5.60); RED CELL DISTRI WIDTH 13.3 % (11.5-15.5)
[2024-11-19 13:55] LABS: ALBUMIN 4.7 g/dL (3.2-5.0); ALKALINE PHOSPHATASE < 20 u/l (38-126); ANION GAP 14 (6-22 (CALC)); BILIRUBIN, TOTAL 0.4 mg/dL (0.02-1.3); BUN 11 mg/dL (7-17); BUN/CREATININE RATIO 13 (12-20 (CALC)); CARBON DIOXIDE 25 mmol/l (22-30); CHLORIDE 103 mmol/l (95-108); CREATININE 0.8 mg/dL (0.5-1.0); ESTIMATED GFR 93 ML/MIN (>=90 (CALC)); LIPASE 138 u/l (23-300); POTASSIUM 3.2 mmol/l (3.5-5.1); SGOT/AST 41 u/l (14-36); SODIUM 139 mmol/l (137-146); TOTAL PROTEIN 7.9 g/dL (6.3-8.2)
[2024-11-19] MEDS ORDERED: PROMETHAZINE HCL 25 MG/ML AMP IM ONE (14:20)
[2024-11-19 15:13] LABS: URINE BILIRUBIN - DIPSTICK Negative (NEGATIVE); URINE BLOOD DIPSTICK Moderate (NEGATIVE); URINE GLUCOSE - DIPSTICK Negative (NEGATIVE); URINE KETONE 40 mg/dL (NEGATIVE); URINE LEUK ESTERASE Negative (NEGATIVE); URINE NITRITE - DIPSTICK Negative (Negative); URINE PH 8.5 (4.5-8.0); URINE PROTEIN - DIPSTICK 100 mg/dL (NEG-TRACE); URINE SPECIFIC GRAVITY 1.025; URINE UROBILINOGEN - DIPSTICK 0.2 E.U./dL (0.2)
[2024-11-19 15:20] LABS: URINE COLOR Yellow
[2024-11-19 15:24] LABS: URINE AMORPH SEDIMENT MANY hpf (NONE-FEW); URINE SQUAMOUS EPITHELIAL CELL FEW EPI/hpf (0-FEW)
== END 2024-11-19 16:07 | disposition home or self-care (01) ==
LOC: ED 12:31
PROVIDERS: Family Medicine
DX: R11.2 Nausea with vomiting, unspecified (principal); F41.9 Anxiety disorder, unspecified; F31.9 Bipolar disorder, unspecified
CPT/HCPCS: J2405; J2550; Q9967